=== PATIENT | male | born 1960 | race Caucasian/White ===

== ENCOUNTER 2018-05-16 07:44 | Day surgery (SDC) | payer BC ==
[2018-05-16] VITALS (13 sets, daily range): BP systolic 122–162; BP diastolic 63–100
[~2018-05-16] VITALS: Ht 180.3 cm; Wt 75.9 kg
[2018-05-16] MEDS ORDERED: normal saline 1000ml 1,000 ML IV PRN (08:10)
[2018-05-16] MEDS ORDERED: GLUC100017 PO (08:25)
[2018-05-16] MEDS ORDERED: FLUT1AER INH (08:25)
[2018-05-16] MEDS ORDERED: ASCO500W7 PO (08:25)
[2018-05-16] MEDS ORDERED: FURO20TA4 PO (08:27)
[2018-05-16] MEDS ORDERED: PANT-47 PO (08:31)
[2018-05-16] MEDS ORDERED: LEVO75TA PO (08:31)
[2018-05-16] MEDS ORDERED: EPIN0.3P3 IJ (08:31)
[2018-05-16] MEDS ORDERED: ALBU8.5H8 INH (08:31)
[2018-05-16 08:46] LABS: ALBUMIN 3.3 G/DL (3.4-5.0); ANION GAP 4 (8-16); BLOOD UREA NITROGEN 21 MG/DL (7-18); CALCIUM 8.4 MG/DL (8.5-10.1); CHLORIDE 106 MMOL/L (99-107); CREATININE 1.31 MG/DL (0.60-1.10); GLUCOSE 98 MG/DL (70-104); POTASSIUM 4.1 MMOL/L (3.5-5.1); SODIUM 139 MMOL/L (135-145); TOTAL CARBON DIOXIDE 28.9 MMOL/L (24-32); eGFR 56 ML/MIN
[2018-05-16 08:47] LABS: BASOPHILS % (AUTO) 0.9 % (0-1); EOSINOPHILS # (AUTO) 0.2 X10'3 (0-0.9); EOSINOPHILS % (AUTO) 6.7 % (0-6); HEMATOCRIT 36.9 % (42.0-52.0); HEMOGLOBIN 12.9 g/dl (14.0-17.9); LYMPHOCYTES # (AUTO) 1.1 X10'3 (1.1-4.8); LYMPHOCYTES % (AUTO) 30.7 % (21-51); MEAN CORPUSCULAR HEMOGLOBIN 31.7 PG (27.0-31.0); MEAN CORPUSCULAR HGB CONC 34.9 g/dL (33.0-36.5); MEAN CORPUSCULAR VOLUME 90.8 FL (78-98); MEAN PLATELET VOLUME 7.3 FL (7.4-10.4); MONOCYTES # (AUTO) 0.5 X10'3 (0-0.9); MONOCYTES % (AUTO) 13.8 % (2-12); NEUTROPHILS # (AUTO) 1.7 X10'3 (1.8-7.7); NEUTROPHILS % (AUTO) 47.9 % (42-75); PLATELET COUNT 274 X10'3 (140-440); RED BLOOD COUNT 4.06 X10'6 (4.70-6.10); RED CELL DISTRIBUTION WIDTH 12.9 % (11.5-14.5); WHITE BLOOD COUNT 3.6 X10'3 (4.5-11.0)
[2018-05-16 08:53] LABS: PROTHROMBIN TIME 10.3 SECONDS (9.0-12.0)
[2018-05-16] MEDS ORDERED: normal saline 1000ml 1,000 ML IV SCH (09:26)
[2018-05-16] MEDS ORDERED: fentaNYL/PF 50MCG/1 ML 2ML syringe IV PRN (09:30)
[2018-05-16] MEDS ORDERED: LIDOcaine 1%/PF 5ML 10 MG/ML VIAL SQ ONE (09:30)
[2018-05-16] MEDS ORDERED: midazolam 2 mg/2 ml injection IV PRN (09:30)
[2018-05-16] MEDS ORDERED: LIDOcaine 1%/PF 5ML 10 MG/ML VIAL ONE (09:34)
[2018-05-16] MEDS ORDERED: midazolam 2 mg/2 ml injection ONE (09:35)
[2018-05-16] MEDS ORDERED: fentaNYL/PF 50MCG/1 ML 2ML syringe ONE (09:35)
[2018-05-16] MEDS ORDERED: HYDROcodone/acetaminophen 5mg/325mg tablet PO PRN (11:00)
== END 2018-05-16 11:40 | disposition home or self-care (01) ==
LOC: SSTAY O 07:44
PROVIDERS: ATTEND Radiology Diagnostic Radiology
DX: N28.1 Cyst of kidney, acquired (principal); N18.9 Chronic kidney disease, unspecified; J45.909 Unspecified asthma, uncomplicated; E03.9 Hypothyroidism, unspecified; Z79.899 Other long term (current) drug therapy
CPT/HCPCS: 36415; 50200; 77012; 80048; 85025; 85610; J2001; J2250; J3010; J7030; 99152; 99153

== ENCOUNTER 2022-04-13 11:36 | Day surgery (SDC) | payer BC, OTHER ==
[~2022-04-13] VITALS: Ht 180.3 cm; Wt 76.4 kg
[~2022-04-13 11:36] MED LIST: ALBU8.5H17 INH; ASCO500W7 PO; EPIN0.3P3 IJ; FLUT1AER INH; FURO20TA4 PO; GLUC100017 PO; LEVO75TA PO; PANT-47 PO
[2022-04-13 11:45] VITALS: BP 122/72
[2022-04-13] MEDS ORDERED: fentaNYL/PF 50MCG/1 ML 2ML syringe ONE (12:20)
[2022-04-13] MEDS ORDERED: MIDAZolam 1 MG/ML 5ML VIAL ONE (12:20)
[2022-04-13] MEDS ORDERED: LIDOcaine Viscous 15ml cup ONE (12:21)
[2022-04-13 13:40] VITALS: BP 108/57
[2022-04-13 13:50] VITALS: BP 112/60
[2022-04-13 14:00] VITALS: BP 106/65
[2022-04-13 14:10] VITALS: BP 101/71
== END 2022-04-13 14:24 | disposition home or self-care (01) ==
LOC: GI LAB 11:36
PROVIDERS: ATTEND Internal Medicine Gastroenterology
DX: Z12.11 Encounter for screening for malignant neoplasm of colon (principal); R10.84 Generalized abdominal pain; D12.0 Benign neoplasm of cecum; K29.50 Unspecified chronic gastritis without bleeding; K29.00 Acute gastritis without bleeding; J45.909 Unspecified asthma, uncomplicated; E03.9 Hypothyroidism, unspecified; Z72.89 Other problems related to lifestyle; Z79.899 Other long term (current) drug therapy
CPT/HCPCS: 43239; 45385; 99152; 99153; C1889; J2250; J3010; J7030; Z7512; A4620